=== PATIENT | female | born 1955 | race Caucasian/White ===

== ENCOUNTER → 2020-10-27 10:15 | Outpatient (CLI) | payer OTHER, SELFPAY ==
[2020-10-27 10:40] LABS: Add Manual Diff / Slide Review NO; Basophils Absolute Auto 100 /uL (0-100); Eosinophils Absolute Auto 200 /uL (0-450); Eosinophils Percent Auto 3.2 % (2-4); Hematocrit 43.1 % (36-46); Hemoglobin 14.6 g/dL (12.0-16.0); Lymphocytes Absolute Auto 2200 /uL (1100-4500); Lymphocytes Percent Auto 37.6 % (25-40); Mean Corpuscular Volume 91.4 fL (80-100); Monocytes Absolute Auto 400 /uL (0-900); Monocytes Percent Auto 7.4 % (3-14); Neutrophils Absolute Auto 3000 /uL (1500-7000); Neutrophils Percent Auto 50.8 % (50-75); Platelet Count 306 X10^3/uL (150-400); Red Blood Cell Count 4.71 X10^6/uL (4.0-5.2); Red Cell Distribution Width 13.5 % (11.6-14.8); White Blood Cell Count 5.8 X10^3/uL (4.5-11.0)
[2020-10-27 11:07] LABS: BUN Creatinine Ratio 28.6 (6-22); Blood Urea Nitrogen 18 mg/dL (7-17); Calcium 9.8 mg/dL (8.4-10.2); Carbon Dioxide 30 mmol/L (22-32); Chloride 103 mmol/L (98-107); Estimated Glomerular Filt Rate > 60.0 mL/min (>60); Glucose 115 mg/dL (80-110); HEMOLYSIS < 15 (0-50); Potassium 4.4 mmol/L (3.4-5.1); Sodium 138 mmol/L (137-145)
[2020-10-27 11:13] LABS: Hemoglobin A1C% w Est Avg Glu 5.9 % (4.0-6.0)
== END ==
PROVIDERS: Referring Provider Orthopaedic Surgery Adult Reconstructive Orthopaedic Surgery; Visit Provider Orthopaedic Surgery Adult Reconstructive Orthopaedic Surgery
DX: Z01.818 Encounter for other preprocedural examination (principal); Z01.812 Encounter for preprocedural laboratory examination; R73.9 Hyperglycemia, unspecified
CPT/HCPCS: 36415; 80048; 83036; 85025; 93005; 93010

== ENCOUNTER → 2020-11-19 11:56 | Outpatient (CLI) | payer OTHER, SELFPAY ==
[2020-11-19 12:52] LABS: COVID19 -Nasal RAPID Negative (Negative)
== END ==
PROVIDERS: Visit Provider Physician Assistant
DX: Z20.822 Contact with and (suspected) exposure to COVID-19 (principal)
CPT/HCPCS: 87635

== ENCOUNTER 2020-11-21 10:23 | Day surgery (SDC) | payer OTHER, SELFPAY ==
[2020-11-21] VITALS (15 sets, daily range): BP systolic 128–173; BP diastolic 67–95; PULSE 67–98; RESP 9–18; TEMP 35.9–37; O2SAT 92–99; BMI 32.4
--- NOTE | 2020-11-21 | DI.RAD.S_ITS ---
PROCEDURE: XR HIP LT 1V INDICATIONS: LEFT TOTAL HIP TECHNIQUE: Single views of the hip were acquired. COMPARISON: None. FINDINGS: Spot fluoroscopic intraoperative images demonstrating expected intraoperative alignment of left hip arthroplasty. Dictated by: Chaka Womack M.D. on 11/21/2020 at 14:43 Approved by: Chaka Womack M.D. on 11/21/2020 at 14:43
--- NOTE | 2020-11-21 11:23 | DI.RAD.S_ITS ---
PROCEDURE: XR PELVIS 1-2V INDICATIONS: anterior AL TECHNIQUE: 1 view of the lower pelvis acquired. COMPARISON: [facility], CR, XR HIP LT 1V, 11/21/2020, 13:31. [facility], CR, XR PELVIS WITH BILATERAL LATERAL HIPS, 09/17/2020, 14:17. FINDINGS: Bones: Patient is status post left hip arthroplasty, with hardware components in expected positions. The hip joint appears congruent. The visualized bony structures appear intact. Severe right hip DJD. Soft tissues: Overlying postoperative changes are noted. No suspicious soft tissue densities. IMPRESSION: Expected postoperative appearance of the left total hip arthroplasty. Dictated by: Jin Vivar M.D. on 11/21/2020 at 14:37 Approved by: Jin Vivar M.D. on 11/21/2020 at 14:38
--- NOTE | 2020-11-21 11:28 | PM.PREOP ---
Pre-operative Note COVID-19 COVID-19 status: Negative Result date/Date tested (Pos, Neg/Pending): 11/19/20 Interval Note History & Physical reviewed/Exam performed by Physician: Yes Changes to H&P: No H&P completed within 30 days and has changed as indicated here:: Plan for left anterior AL
[2020-11-21] MEDS: ACETAMINOPHEN 325 MG TABLET 975 MG PO (11:34)
[2020-11-21] MEDS: PREGABALIN 75 MG CAPSULE PO (11:34)
[2020-11-21] MEDS: CELECOXIB 200 MG CAPSULE PO (11:35)
[2020-11-21] MEDS: LACTATED RINGERS 1,000 ML 42 ML IV ×2 (11:36→14:11)
[2020-11-21] MEDS: CEFAZOLIN 2 GM/100 ML FROZ.PIGGY IV ×2 (12:17→20:57)
[2020-11-21] MEDS: TRANEXAMIC ACID 1,000 MG VIAL 2000 MG INJ ×2 (12:30→14:20)
--- NOTE | 2020-11-21 13:03 | SUR.OPER ---
Supine on padded [place] table with bilateral legs secured in padded positioning boots and suspended in positioning spars, operative leg in traction per surgeon. Head on one pillow. Arm on non-operative side secured on padded armboard <90 degrees abduction. Arm on operative side padded and resting across chest then secured with tape over sheet. Padded perineal post in place per surgeon.
[2020-11-21] MEDS: ROPIVACAINE 0.5% PF 5 MG/ML 20ML VIAL 60 ML INJ (13:48)
[2020-11-21] MEDS: KETOROLAC 30 MG/ML VIAL IV (13:49)
[2020-11-21] MEDS: MORPHINE 4 MG/ML INJ INJ (13:49)
[2020-11-21] MEDS: BACITRACIN OINT 0.9 GM PCKT 1 APPLIC TOP (14:36)
--- NOTE | 2020-11-21 14:48 | PM.OP.1 ---
Operative Date/Time/Diagnoses Date of procedure: 11/21/20 Time of procedure: 14:49 Pre-op diagnosis: Left hip severe OA Procedure & Clinicians Procedure: left anterior AL Same procedure as scheduled: Yes Indications: Severe OA with large osteophytes and femoral head deformity Surgeon: Izaiah Zaragoza Research Programmer: Robbin Alejandre Click Yes if Unassisted: No Anesthesia Type: General and Spinal Operative Notes Findings: Severe left hip OA. Large head and neck osteophytes, large emdial wall osteophytes, subchondral cysts, femoral head collapse Closure Type: primary Specimen(s): none sent Prosthetic devices, grafts, tissues, transplants, or devices: [employer]hew 52 mm R3 cup 2x 25mm screws 52 x 36 mm neutral offset liner Size 5 high offset anthology 36+ 4 Biolox head Estimated Blood Loss (mL): 200 Procedure in detail: Patient was met in the preoperative holding area where the site and side of surgery were marked by . Informed consent had been reviewed in clinic was also reviewed the preoperative holding area and all last minute questions were answered. Patient was then brought back in the operating room where she received a spinal anesthetic. She was then transferred on the [place] table and induced under general anesthesia. Both feet were placed in well-padded [place] table boots and the left lower extremity was then prepped and draped in normal sterile fashion. A surgical time-out was performed verifying the site and side of surgery as well as the name of the patient. A 6 cm long incision based approximately 2 cm distal and 2 cm lateral to the ASIS aiming towards the fibular head was made in the skin using 10. Blade. Electrocautery was used to dissect down to the level of the tensor fascia. A 10. Blade was then used to incise the tensor fascia Allis clamp was placed on the medial leaflet. The tensor muscle itself was then reflected laterally and a Cobra was placed over the superior aspect of the femoral neck. A Meyerding retractor was then placed over the lateral aspect of the rectus femoris retracted medially to give us good exposure to the ascending branches of the femoral circumflex vessels this was then coagulated using electrocautery and a 2nd retractor was then placed under the inferior aspect of the femoral neck. A bent Hohmann retractor was then placed over the anterior lip of the acetabulum to give us good exposure to the capsule. Inverted T-shaped capsulotomy was then performed the superior and inferior leaflets were then tagged with FiberWire suture. LArge head and neck osteophytes were noted. These were then partially released and the retractors then placed intracapsularly. A reciprocating saw was then used to make our femoral neck cut and a corkscrew was then used to remove the femoral head. Retractors were then placed to give us good acetabular exposure. The labrum was then removed with a Weld blade and the pulvinar was removed using electrocautery and suction. I began reaming with a 45 mm Reamer using floruscopy and then up sized to 46 mm Reamer and then up by 2s to 50 mm Reamer. Then selected a 51 mm Reamer which had good the resistance and a 52 mm cup was then selected. The cup was then placed a under fluoroscopic guidance. Two screws were then placed. The neutral offset liner was then placed in the cup and malleted flush in making sure the tabs were well seated. Next I turned my attention to the femoral side a femoral elevator hook was then used to place underneath the posterior aspect of the femur the femur was then externally rotated to 110? of external rotation extent of floor and adducted. A bent Hohmann retractors then placed over the superior leaflet of the capsulotomy and a capsular release was performed and then a single prong large retractors placed over the superior aspect of the greater trochanter. A Odonnell retractor was then placed over the calcar to give us good exposure to the femoral neck cut. A canal finer was then used followed by a large curette followed by chili pepper broach to lateralize followed by a 1. Broach upsizing by once into a size 4. Then calcar planed off the size 4 broach this had good fit and fill. I then placed a standard neck with a 36+ 0 head and reduced the hip. The hip was not stable to maximal external rotation nor external rotation to 90? and extension to the floor. X-ray was brought in which showed that we were a couple mm short on this side and had decreased offset as compared to the non operative side. In addition the stem was undersized. I then up the broach to a size 5 which had good rotational stability. Trialed the high offset neck and a 36 + 4 head which had excellent stability with external rotation to maximal external rotation as well as external rotation to 90? in extension to the floor. The hip was then dislocated the trial components removed and a size 5 high-offset anthology was then placed and a 36+4 head was then selected and malleted onto the trunnion. The hip was then reduced a final time and had the same stability as prior. Betadine solution was then placed into the wound as final x-rays were obtained the Betadine solution was then lavaged with copious normal saline periarticular injection was then performed with local anesthetic. Capsulotomy was then repaired using a running Ethibond suture and the tag FiberWire sutures were then removed. The tensor fascia was then closed using number 0 Vicryl in a running locking fashion followed by 2 Vicryl in the subcutaneous layer followed by 3-0 Stratafix Dermabond on the skin layer and an Aquacel dressing. Post-operative Condition: stable Disposition: PACU Plan for aftercare: 24 hours post-op abx, WBAT LLE, ASA 81mg BID for 6 weeks for DVT prophylaxis
[2020-11-21] MEDS: fentaNYL 100 MCG/2 ML INJ IV (15:12)
--- NOTE | 2020-11-21 16:44 | PC.NURSE ---
Pt's home meds x 2 obtained from pt and sent to pharmacy after explanation provided to pt.
[2020-11-21] MEDS: METFORMIN XR 500 MG TABLET PO (17:37)
[2020-11-21] MEDS: LACTATED RINGERS 1,000 ML 125 ML IV (17:37)
[2020-11-21] MEDS: ACETAMINOPHEN 325 MG TABLET 650 MG PO ×2 (17:37→20:57)
[2020-11-21 18:26] LABS: Add Manual Diff / Slide Review NO; Basophils Absolute Auto 0 /uL (0-100); Basophils Percent Auto 0.4 % (0-2); Eosinophils Absolute Auto 0 /uL (0-450); Hematocrit 38.2 % (36-46); Hemoglobin 12.8 g/dL (12.0-16.0); Lymphocytes Absolute Auto 700 /uL (1100-4500); Mean Corpuscular HGB Conc 33.4 % (30-36); Mean Corpuscular Hemoglobin 30.9 PG (26-34); Mean Corpuscular Volume 92.5 fL (80-100); Monocytes Absolute Auto 300 /uL (0-900); Monocytes Percent Auto 2.1 % (3-14); Neutrophils Absolute Auto 12500 /uL (1500-7000); Neutrophils Percent Auto 92.5 % (50-75); Platelet Count 258 X10^3/uL (150-400); Red Blood Cell Count 4.13 X10^6/uL (4.0-5.2); Red Cell Distribution Width 13.7 % (11.6-14.8); White Blood Cell Count 13.5 X10^3/uL (4.5-11.0)
[2020-11-21] MEDS: ASPIRIN EC 81 MG TABLET PO (20:57)
[2020-11-21] MEDS: DOCUSATE 100 MG CAPSULE PO (20:57)
[2020-11-21] MEDS: BACITRACIN 28 GM OINT 1 APPLIC TOP (20:58)
[2020-11-21] MEDS: hydrOXYzine pamoate 25 MG CAPSULE PO (23:28)
[2020-11-22] VITALS: BP 127/73; PULSE 90; RESP 18; TEMP 36.3; O2SAT 93
[2020-11-22] MEDS: OXYCODONE IR 5 MG TABLET PO ×4 (00:26→10:14)
[2020-11-22] MEDS: LACTATED RINGERS 1,000 ML 125 ML IV (01:22)
[2020-11-22] MEDS: CEFAZOLIN 2 GM/100 ML FROZ.PIGGY IV (03:54)
[2020-11-22 04:08] VITALS: BP 118/65; PULSE 82; RESP 18; TEMP 36.2; O2SAT 93
[2020-11-22 06:02] LABS: Hematocrit 33.7 % (36-46); Hemoglobin 11.3 g/dL (12.0-16.0)
[2020-11-22 08:00] VITALS: BP 131/66; PULSE 70; RESP 18; TEMP 37.1; O2SAT 93
[2020-11-22] MEDS: BACITRACIN 28 GM OINT 1 APPLIC TOP (09:21)
[2020-11-22] MEDS: ACETAMINOPHEN 325 MG TABLET 650 MG PO (09:25)
[2020-11-22] MEDS: ASPIRIN EC 81 MG TABLET PO (09:25)
--- NOTE | 2020-11-22 09:25 | PT.IIE ---
Current Diagnoses Unilateral primary osteoarthritis, left hip (11/21/20) Surgery Performed Operation Date: 11/21/20 11:45 Actual Procedures p Total Hip Arthroplasty/Anterior Approach(Left) - Izaiah Zaragoza MD Medical History (Last Updated 11/19/20 @ 14:12 by Tatiana Cleaning RN) Adopted DMII (diabetes mellitus, type 2) Hyperlipidemia Hypertension Lower extremity edema Primary osteoarthritis of left hip Recurrent sinusitis Physical Therapy Inpatient Evaluation/Re-Eval M1 PT/OT-IP Prior Functional Status Start: 11/22/20 11:07 Freq: NEEDED Status: Active Protocol: Document 11/22/20 09:25 AB (Rec: 11/22/20 11:18 AB [id number]) Medical Review Prior Functional Status Medical History Reviewed Yes Communication able to make needs known Mobility and Gait pt stated that she is modified independent with all mobilities and ambulation using SPC but occasionally walks without AD indoors but tends to furniture cruise Social History Household Members spouse Living Arrangements House Number of Floors (Floors) One Floor Number of Stairs To Enter/Railing? 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 has a safety frame on one of the toilets M2 PT-IP Current Condition Start: 11/22/20 11:07 Freq: NEEDED Status: Active Protocol: Document 11/22/20 09:25 AB (Rec: 11/22/20 11:18 AB [id number]) Physical Therapy Current Condition Current Condition Evaluation Date 11/22/20 Treatment Diagnosis s/p L AL anterior approach; difficulty in walking Onset Date 11/21/20 Precautions Anterior Hip Precautions No Hip Extension,No Hip External Rotation Weight Bearing Status Weight Bearing Status Weight Bear as Tolerated Allowed Weight Bearing Amount (enter % LLE WBAT or #) (%) M3 PT-IP Subjective Start: 11/22/20 11:07 Freq: NEEDED Status: Active Protocol: Document 11/22/20 09:25 AB (Rec: 11/22/20 11:18 AB [email or web address]) Subjective Physical Therapy Visit Type Type Initial Evaluation Visit Start Time 09:25 Visit Stop Time 10:07 Total Visit Minutes 42 Number of APPLICATION SUPPORT MANAGER Visits 0 Physical Therapy Visit Comments Patient Comments pt is agreeable to do PT Patient Goals to go home Therapy Pain Assessment Pain When Pain Assessed At Rest Pain Present Pain Present Pain Reported Location Left Hip Intensity 3 Scale Used Numeric (0 - 10) Pain Management Techniques Apply Cold,Distraction, Modification of Treatment,Re- positioning,Timing of Activity with Medications M4 PT-IP Mobility and Gait Start: 11/22/20 11:07 Freq: NEEDED Status: Active Protocol: Document 11/22/20 09:25 AB (Rec: 11/22/20 11:18 AB [id number]) PT-Bed Mobility Assessment Supine to Sit Supine to Sit Standby Assistance PT-Transfer Assessment Sit to and From Stand Sit to and from Stand Standby Assistance,1 Person Assistance,Use of Upper Extremities Equipment Transfer Assistive Device Gait Belt,Front Wheeled Walker Orthotic/Prosthetic Devices or Brace: No Transfers Transfer Destination Chair Transfer Technique ambulated using FWW Transfer Ability Level of Assist Standby Assistance,Contact Guard Assistance,1 Person Assistance,Use of Upper Extremities Comments Mobility Comments educated pt on anterior hip precautions and pt able to recall. completed supine to sit SBA. able to sit on EOB SBA. completed sit to stand SBA and ambulated in room using FWW SBA to occasional CGA. presents with antalgic gait. ambulated in the hallway ~ 150 ft using FWW SBA . completed up/down steps using L rail CGA and cues. offered caregiver training but pt refused. stated that she can manage and knows what to do. pt ambulated back to her room and agreed to sit up on chair. positioned on chair. call light and table placed within reach. Gait Assessment Gait Gait Assistance Required: Standby Assistance,Contact Guard Assist Distance (Feet) 150 Able to Maintain Weight Bearing Status Yes During Gait Assistive Devices Assistive Device Gait Belt,Front Wheeled Walker Orthotic/Prosthetic Devices or Brace: No Gait Deviations General Gait Pattern Antalgic Factors Limiting Gait Function Factors Limiting Gait Function Decreased Activity Tolerance, Decreased Strength,Limited Range of Motion,Pain,Poor Balance Comments Gait Comments pls refer to mobility section for details Stair Climbing Assessment Evaluation Level of Assist On Stairs Contact Guard Assistance Devices Stair Climbing Assistive Devices Left Railing Technique/Endurance Stair Climbing Direction Ascend and Descend Stair Climbing Technique Step to Step Number of Steps Climbed 3 Query Text: Stair Climbing Set # Repetitions (reps) 1 PT-Balance Assessment Sitting Balance and Reactions Static Sitting Balance Ability Normal Dynamic Sitting Balance Ability Good Standing Balance and Reactions Static Standing Balance Ability Fair Dynamic Standing Balance Ability Fair Device Used FWW M5 PT-IP Objective Assessments Start: 11/22/20 11:07 Freq: NEEDED Status: Active Protocol: Document 11/22/20 09:25 AB (Rec: 11/22/20 11:18 AB [id number]) Orientation Orientation/Cognition Level of Alertness Alert Orientation Name,Age,Place,Situation Language Function Ability No Deficits Noted Safety Awareness Understands Safety Issues Memory Description No Deficits Noted Gross Range of Motion Lower Extremity ROM Assessment Within Functional Limits Strength Lower Extremity Strength Assessment Left Impaired Hip 3+/5 Muscle Tone Muscle Tone WNL Yes M6 PT-IP Treatment Start: 11/22/20 11:07 Freq: NEEDED Status: Active Protocol: Document 11/22/20 09:25 AB (Rec: 11/22/20 11:18 AB [email or web address]) Physical Therapy Treatment Exercises Exercises Heel Slides Education Education Provided Precautions,Weight Bearing Status,Post-Op Packet,Safety M7 PT-IP Assessment and Plan Start: 11/22/20 11:07 Freq: NEEDED Status: Active Protocol: Document 11/22/20 09:25 AB (Rec: 11/22/20 11:18 AB [id number]) PT Summary Assessment and Plan Potential Rehabilitation Potential Good Status of Condition at Evaluation Stable Summary Impairments Pain,ROM,Strength,Balance,Bed Mobility,Transfers,Gait, Activity Tolerance Assessment Summary pt requiring SBA to occasional CGA with ambulation using FWW . pt plans to go home and spouse to assist her as needed . pt stated that she is set up for outpt PT. pt may go home when medically stable. Goals Bed Mobility Goal Independent Transfer Goal Independent,Front Wheeled Walker Gait Goal Independent,Front Wheel Walker Gait Distance 200 Other Goals up/down 2 steps L rail ascending SBA Days to Meet Goals 3 Frequency of Treatment Frequency Of Treatment Twice a Day Treatment Plan Physical Therapy Treatment Plan Bed Mobility Training,Transfer Training,Gait Training, Therapeutic Exercise,Balance Retraining,Post Op Education, Discharge Planning,Hot or Cold Pack,Neuromuscular Re-ed, Coordination Retraining,Manual Therapy Precautions Anterior Hip Precautions No Hip Extension,No Hip External Rotation Recommendations To Nursing Amount of Assist Needed 1 Person Assist Discharge Recommendations PT Discharge Recommendations Home with Assistance, Outpatient PT Transportation Needs at Discharge Private Vehicle
[2020-11-22] MEDS: SODIUM CHLORIDE 0.9% FLUSH 10 ML IV (09:26)
--- NOTE | 2020-11-22 11:49 | PM.DS.1 ---
History of Present Illness History of Present Illness Date Patient Seen: 11/22/20 Time Patient Seen: 11:50 Chief complaint: *OPB* Narrative: Please refer to previously documented HPI and chart Discharge Providers Provider Discharge Date: 11/22/20 Primary care physician: Doctor Too MD Consults: 11/21/20 11:23 Consult to Anesthesiology Routine Comment: Consulting Provider: Anesthesiologist Reason for consultation: Regional block for post operative pain control 11/21/20 16:01 Consult to Discharge Planning Routine Comment: Consult to Physical Therapy Evaluate & Treat Comment: Physician Instructions: post op AL protocol Consult to Respiratory Therapy Evaluate & Treat Comment: Physician Instructions: Evaluate and treat Discharge provider: Robbin Alejandre PA-C Summary Hospital Course Discharge Diagnosis: Left hip osteoarthritis Status post left total hip arthroplasty via anterior approach Hospital Course: 65-year-old female with the above-listed diagnosis was appropriately consented for the above listed procedure and presented to OR undergoing said procedure without difficulty or complication then admitted overnight for observation to hospital including but not limited to pain management, physical and occupational therapy as well as evaluation for disposition home today. Surgical evaluation concurred with therapeutic recommendations. At the time of discharge the patient had improved itching from taking narcotic analgesics after antihistamine and treatment utilizing Vistaril. She was able to eat her breakfast and void without difficulty. Her wound was clean, dry and intact. The patient denied any intractable pain, weakness, numbness or tingling in the related left hip or distal lower extremity. There was no fever, chills, chest pain, or shortness of breath. She verbalized understanding postoperative total hip care protocols, instructions and precautions. The patient agreed with the plan to follow-up in clinic in 2 weeks for re-evaluation or sooner as needed. Status at Discharge Cognitive/behavioral status at discharge: oriented Functional status at discharge: uses cane/walker Overall status at discharge: patient is progressing back to baseline Time Spent with Patient Time spent: Less than 30 minutes Exam Vital Signs (past 8 hours): - 11/22/20 04:08 11/22/20 08:00 Temperature 97.1 F L 98.7 F Pulse Rate 82 70 Respiratory Rate 18 18 Blood Pressure 118/65 131/66 Pulse Oximetry 93 93 Oxygen Delivery Method Room Air Oxygen Flow Rate 0 Narrative Exam Narrative: 65-year-old female observed sitting in chair comfortably and in no apparent distress. She is alert and oriented x3. The wound dressing on her left hip was clean, dry and intact. There was appropriate thelma-incisional tenderness to palpation. Her calves were soft, compressible and nontender bilaterally. The distal left lower extremity functional Aviles and plantar flexion was grossly intact as well as her neurovascular function including gross normal sensation and 2+ pulses. Objective Labs Result Diagrams: 11/22/20 05:20 Labs: Laboratory Results - last 24 hr 11/21/20 11/22/20 18:19 05:20 WBC 13.5 H RBC 4.13 Hgb 12.8 11.3 L Hct 38.2 33.7 L MCV 92.5 MCH 30.9 MCHC 33.4 RDW 13.7 Plt Count 258 Neut % (Auto) 92.5 H Lymph % (Auto) 5.0 L [place] % (Auto) 2.1 L Eos % (Auto) 0.0 L Baso % (Auto) 0.4 Neut # (Auto) 15345 H Lymph # (Auto) 700 L [place] # (Auto) 300 Eos # (Auto) 0 Baso # (Auto) 0 PFSH Medical History (Updated 11/19/20 @ 14:12 by Tatiana Cleaning RN) Adopted DMII (diabetes mellitus, type 2) Hyperlipidemia Hypertension Lower extremity edema Primary osteoarthritis of left hip Recurrent sinusitis Social History household members: spouse Smoking Status: Former smoker alcohol intake: current Discharge Assessment & Plan Assessment and Plan Assessment: Left hip osteoarthritis Postoperative day 1 status post left total hip arthroplasty via anterior approach concurrently doing well and stable for discharge home today. Plan of Treatment: 1. Discharge home today after PT/OT recommendation for disposition. 2. Postoperative total hip arthroplasty care protocols, instructions and recommendations apply. 3. Follow-up in 2 weeks in clinic for re-evaluation or sooner as needed. Discharge Plan Discharge Plan Patient Disposition: Home Discharge orders & Medications Discharge Orders: Discharge (Order); Ordered 11/22/20 Ordered By: Robbin Alejandre Prescriptions: New acetaminophen 325 mg Tablet 650 mg PO TID Qty: 60 RF: 0 aspirin 81 mg Tablet,Delayed Release (Dr/Ec) 81 mg PO BID Qty: 60 RF: 0 oxycodone 5 mg Tablet 5 mg PO Q4-5H PRN (Reason: Pain, Moderate (4-6)) Qty: 20 RF: 0 hydroxyzine pamoate 25 mg Capsule 25 mg PO Q6HR PRN (Reason: Itching) Qty: 60 RF: 0 Continued ascorbic acid (vitamin C) 1,000 mg Tablet 1 g PO BID RF: 0 triamcinolone acetonide 0.5 % ointment TOPICAL RF: 0 diclofenac sodium 75 mg tablet,delayed release (DR/EC) 75 mg PO BID RF: 0 multivitamin Capsule 1 cap PO DAILY RF: 0 metformin 500 mg tablet extended release 24 hr 500 mg PO QPM RF: 0 vitamin E 400 unit Capsule 400 unit PO DAILY RF: 0 cholecalciferol (vitamin D3) [Vitamin D3] 25 mcg (1,000 unit) Capsule 50 mcg PO DAILY RF: 0 acqvwxrzomm-oxbbxnlgv-dmy C-Mn [Glucosamine Chondroitin MaxStr] 500-400 mg Capsule 1 cap PO TID RF: 0 calcium carbonate-vitamin D3 500 mg(1,250mg) -200 unit Tablet 1 tab PO RF: 0 milk thistle 175 mg Capsule 160 mg PO DAILY RF: 0 cranberry fruit RF: 0 cyanocobalamin (vitamin B-12) RF: 0 turmeric RF: 0 Follow up/Referrals: Doctor Gage MD [Primary Care Provider] - Izaiah Zaragoza MD [Physician] - (Follow-up in clinic in 2 weeks for re-evaluation.) Diet/Activity/Treatments Diet: Diet as Tolerated and Carb-consistent/Diabetic Activity: Weight bear as tolerated in bilateral lower extremities with fall precautions Cold/Heat Therapy: Ice 20 minutes every hour as needed and tolerated. Skin/Wound/Dressing Care Skin care: Apply OTC triple antibiotic ointment twice daily to left inguinal fold skin Report to your healthcare provider any signs of infection, such as:: chills, fever, night sweats, increased pain, unusual drainage and unusual redness Dressing: Call if dressing is soiled or saturated. Visit Report/Discharge Packet Instructions: DI for Hip Replacement Stand Alone Forms: Surgery Discharge Discharge Data Primary Care Provider: Doctor Too Attending Provider: Izaiah Zaragoza Quality VTE Deep Vein Thrombosis/Pulmonary Embolism Present on Admission: No MIPS - Admit Advanced Care Plan / Current Medications Measures: #47 ? Advanced Care Plan Clinician documentation instruction: document at admission. [] I confirmed that the patient's Advance Care Plan is present, code status is documented, or surrogate decision maker is listed in the patient?s medical record. [SATISFIES MIPS PERFORMANCE] If Yes, Stop Here [] The patient?s Advance Care plan is not present because: (select) [MIPS PERFORMANCE EXCEPTION/EXCLUSION] [] I confirmed today that the patient does not wish or was not able to name a surrogate decision maker or provide an Advance Care Plan. [] Hospice care is currently being provided or has been provided this calendar year [] I did NOT confirm today the presence of an Advance Care Plan or surrogate decision maker documented within the patient's medical record. [DOES NOT SATISFY MIPS PERFORMANCE] #130 - Documentation of Current Medications in the Medical Record Clinician documentation instruction: use macro the first time you see a patient. [] I have utilized all available immediate resources to obtain, update, or review the patient?s current medications. [SATISFIES MIPS PERFORMANCE] If Yes, Stop Here [] The patient is not eligible for medication reconciliation; the patient is in an emergent medical situation where delaying treatment would jeopardize the patient?s health. [MIPS PERFORMANCE EXCEPTION/EXCLUSION] [] I did NOT confirm, update or review the patient's current list of medications today. [DOES NOT SATISFY MIPS PERFORMANCE] MIPS - CL Central Venous Catheter Placement Measure: #76 ? Prevention of Central Venous Catheter (CVC) ? Related Bloodstream Infection Clinician documentation instruction: use macro every time you place a central line. [] All elements of Maximal Sterile Barrier Technique, including hand hygiene, skin prep, and sterile ultrasound technique (if used) were followed. [SATISFIES MIPS PERFORMANCE] If Yes, Stop Here [] If ?No?, the medical reason all elements were NOT used for medical reason [] (ex. emergent condition). [] Maximal Sterile Barrier Technique was not followed, no reason provided [DOES NOT SATISFY MIPS PERFORMANCE] MIPS - DC Heart Failure Measures: #5 - Heart Failure (HF): Angiotensin-Converting Enzyme (TITI) Inhibitor or Angiotensin Receptor Karen (ARB) Therapy for Left Ventricular Systolic Dysfunction (LVSD) and #8 - Heart Failure (HF): Beta-Karen Therapy for Left Ventricular Systolic Dysfunction (LVSD) Clinician documentation instruction: use macro at every CHF discharge. [] The patient has current or prior documentation of left ventricular ejection fraction (LVEF) less than 40%, or moderate or severely depressed left ventricular systolic function. Answer both: [SATISFIES MIPS PERFORMANCE] [] The patient was prescribed or already taking an Angiotensin-Converting Enzyme (TITI) Inhibitor, or Angiotensin Receptor Karen (ARB). [] The patient was prescribed or already taking a beta-karen. If Yes to Both, Stop Here [] Patient not prescribed/taking: [MIPS PERFORMANCE EXCEPTION/EXCLUSION] [] TITI or ARB for medical/patient/system reason(s) including [] (ex. allergy, intolerance, contraindication) [] Beta-karen for medical/patient/system reason(s) including [] (ex. allergy, intolerance, contraindication) [] Patient not prescribed/taking: [DOES NOT SATISFY MIPS PERFORMANCE] [] TITI or ARB, no reason given [] Beta-karen, no reason given
[2020-11-22 12:00] VITALS: BP 118/56; PULSE 89; RESP 19; TEMP 37.1; O2SAT 96
--- NOTE | 2020-11-22 12:48 | CM.DANOTE ---
DCP: Case received, EMR reviewed and met with patient. Introduced self and role. Was able to obtain information from patient regarding her baseline activity status prior to surgery, as well as her current living situation. DCP assessment completed with information currently available. Patient is a 65 year old female who admitted yesterday morning to the care of the orthopedic team. PCP: [facility] Payer: confirmed: Luzmaria SANTANA. Patient came to the hospital for a surgical procedure. She had left total hip arthroplasty. Patient has history of hip osteoarthritis, which resulted in chronic hip pain. Met with patient in her room. She was sitting up in her chair, alert and oriented. She resides in [facility] with her spouse, Souleymane. She mentioned that her is disabled, but high functioning, still driving. Patient is independent at her baseline, has been able to drive. She uses a cane, but purchased a FWW on [employer] for home use. She has a friend named Lenore, who will be picking her up. She stated that she does not work for [employer], hasn't worked there for several years. 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 P: Patient has discharge orders for home today. She will have another session with P.T. before she goes home. Mckenzie Garcia RN/Lactation Specialist
--- NOTE | 2020-11-22 13:38 | PC.NURSE ---
Pt discharge education given to pt and friend, discussed- medications and med safety, s/s of infection, f/u appts, diet, activity, s/s of stroke and reasons to seek medical attention. All questions answered. IV removed, intact, tolerated well. Medications returned to pt from pharmacy. All belongings packed up and sent with friend. Pt left via w/c to friend's POV.
== END 2020-11-22 13:00 | disposition home or self-care (01) ==
LOC: OR 12:34 → AC 12:42
PROVIDERS: Referring Provider Orthopaedic Surgery Adult Reconstructive Orthopaedic Surgery; Visit Provider Orthopaedic Surgery Adult Reconstructive Orthopaedic Surgery
PROC: (CPT 27130; principal; 2020-11-21 11:45)
DX: M16.12 Unilateral primary osteoarthritis, left hip (principal); M25.752 Osteophyte, left hip; M85.652 Other cyst of bone, left thigh; M89.8X5 Other specified disorders of bone, thigh; E11.9 Type 2 diabetes mellitus without complications; E03.9 Hypothyroidism, unspecified; Z79.84 Long term (current) use of oral hypoglycemic drugs
CPT/HCPCS: 27130; 36415; 72170; 73501; 76000; 82962; 85014; 85018; 85025; 97161; C1776; J0690; J1100; J1885; J2250; J2270; J2274; J2405; J2704; J3010

== ENCOUNTER → 2021-04-25 08:42 | Outpatient (CLI) | payer OTHER, SELFPAY ==
[2020-11-21 16:04] VITALS: BMI 32.4
[2021-04-25 09:12] LABS: Add Manual Diff / Slide Review NO; Basophils Absolute Auto 0 /uL (0-100); Eosinophils Absolute Auto 100 /uL (0-450); Eosinophils Percent Auto 2.8 % (2-4); Hematocrit 41.3 % (36-46); Hemoglobin 14.2 g/dL (12.0-16.0); Lymphocytes Absolute Auto 1700 /uL (1100-4500); Lymphocytes Percent Auto 35.1 % (25-40); Mean Corpuscular HGB Conc 34.4 % (30-36); Mean Corpuscular Hemoglobin 31.2 PG (26-34); Mean Corpuscular Volume 90.8 fL (80-100); Monocytes Absolute Auto 500 /uL (0-900); Monocytes Percent Auto 9.4 % (3-14); Neutrophils Absolute Auto 2500 /uL (1500-7000); Neutrophils Percent Auto 51.7 % (50-75); Platelet Count 237 X10^3/uL (150-400); Red Blood Cell Count 4.55 X10^6/uL (4.0-5.2); Red Cell Distribution Width 14.8 % (11.6-14.8); White Blood Cell Count 4.8 X10^3/uL (4.5-11.0)
[2021-04-25 09:19] LABS: Hemoglobin A1C% w Est Avg Glu 5.9 % (4.0-6.0)
[2021-04-25 09:29] LABS: BUN Creatinine Ratio 31.7 (6-22); Blood Urea Nitrogen 20 mg/dL (7-17); Calcium 9.5 mg/dL (8.4-10.2); Carbon Dioxide 26 mmol/L (22-32); Chloride 101 mmol/L (98-107); Estimated Glomerular Filt Rate > 60.0 mL/min (>60); Glucose 114 mg/dL (80-110); HEMOLYSIS < 15 (0-50); Potassium 4.6 mmol/L (3.4-5.1); Sodium 137 mmol/L (137-145)
== END ==
PROVIDERS: PCP Student in an Organized Health Care Education/Training Program; Referring Provider Orthopaedic Surgery Adult Reconstructive Orthopaedic Surgery; Visit Provider Orthopaedic Surgery Adult Reconstructive Orthopaedic Surgery
DX: Z01.818 Encounter for other preprocedural examination (principal); Z01.812 Encounter for preprocedural laboratory examination; R73.9 Hyperglycemia, unspecified
CPT/HCPCS: 36415; 80048; 83036; 85025; 93005; 93010

== ENCOUNTER → 2021-05-13 10:39 | Outpatient (CLI) | payer MEDICARE, SELFPAY ==
[2020-11-21 16:04] VITALS: BMI 32.4
[2021-05-13 14:01] LABS: COVID19 -Nasal RAPID Negative (Negative)
== END ==
PROVIDERS: PCP Student in an Organized Health Care Education/Training Program; Visit Provider Nurse Practitioner Family
DX: Z01.812 Encounter for preprocedural laboratory examination (principal); Z20.822 Contact with and (suspected) exposure to COVID-19
CPT/HCPCS: 87635; C9803

== ENCOUNTER 2021-05-15 08:32 | Day surgery (SDC) | payer MEDICARE, OTHER, SELFPAY ==
[2020-11-21 16:04] VITALS: BMI 32.4
[2021-05-10 12:23] VITALS: BMI 33.3
[2021-05-15] VITALS (17 sets, daily range): BP systolic 112–162; BP diastolic 53–84; PULSE 78–95; RESP 10–21; TEMP 36.2–36.8; O2SAT 91–99; BMI 33.3
--- NOTE | 2021-05-15 | DI.RAD.S_ITS ---
PROCEDURE: XR PELVIS 1-2V INDICATIONS: inter op total hip TECHNIQUE: Intra-operative view of the pelvis and hip acquired. COMPARISON: [facility], , XR PELVIS 1-2V, 11/21/2020, 15:01. FINDINGS: Low resolution fluoroscopic spot films of a total right hip arthroplasty shows good positioning. IMPRESSION: Right total hip arthroplasty in place Approved by: Lyle Dennison M.D. on 05/15/2021 at 13:22
--- NOTE | 2021-05-15 | DI.RAD.S_ITS ---
PROCEDURE: XR PELVIS 1-2V INDICATIONS: Post total right hip TECHNIQUE: Single view(s) of the pelvis acquired. COMPARISON: [facility], CR, XR PELVIS 1-2V, 05/15/2021, 11:53. FINDINGS: Bones: No fractures or dislocations. No suspicious bony lesions. Bilateral total hip arthroplasty in good position. Pelvic ring intact. Degenerative changes noted involving both sacroiliac joints. Soft tissues: Visualized bowel gas pattern is normal. No suspicious soft tissue calcifications. Postoperative air noted in the right thigh. IMPRESSION: Bilateral total hip arthroplasty in good position Approved by: Lyle Dennison M.D. on 05/15/2021 at 13:24
[2021-05-15] MEDS: LACTATED RINGERS 1,000 ML 42 ML IV (09:20)
--- NOTE | 2021-05-15 10:12 | PM.PREOP ---
Pre-operative Note COVID-19 COVID-19 status: Negative Result date/Date tested (Pos, Neg/Pending): 05/13/21 Interval Note History & Physical reviewed/Exam performed by Physician: Yes Changes to H&P: No H&P completed within 30 days and has changed as indicated here:: Plan for right anterior AL
[2021-05-15] MEDS: PREGABALIN 75 MG CAPSULE PO (10:15)
[2021-05-15] MEDS: ACETAMINOPHEN 325 MG TABLET 975 MG PO (10:15)
[2021-05-15] MEDS: CELECOXIB 200 MG CAPSULE PO (10:15)
[2021-05-15] MEDS: CEFAZOLIN 1 GM VIAL 2 GM IV ×2 (11:00→18:32)
[2021-05-15] MEDS: TRANEXAMIC ACID 1,000 MG VIAL 1000 MG INJ ×2 (11:19→12:29)
--- NOTE | 2021-05-15 11:30 | SUR.OPER ---
Patient supine on padded [place] table, one arm on padded arm board at <90, other arm padded and secured with tape across patient's chest, both legs secured in padded traction boots and positioned per surgeon, padded post at patient's groin, pressure points checked and padded.
[2021-05-15] MEDS: KETOROLAC 30 MG/ML VIAL IV (11:54)
[2021-05-15] MEDS: MORPHINE 4 MG/ML INJ INJ (11:54)
[2021-05-15] MEDS: ROPIVACAINE 0.5% PF 5 MG/ML 20ML VIAL 60 ML INJ (11:55)
--- NOTE | 2021-05-15 12:52 | P.OP_ITS ---
Operative Date/Time/Diagnoses Date of procedure: 05/15/21 Time of procedure: 12:52 Pre-op diagnosis: right hip OA Post-op diagnosis: same Procedure & Clinicians Procedure: right anterior AL Same procedure as scheduled: Yes Indications: right hip OA with femoral head collapse resistnat to further conservative measures Surgeon: Izaiah Zaragoza Assembler Tubing: Carlo Holland Click Yes if Unassisted: No Anesthesia Type: General and Spinal Operative Notes Findings: femoral head collapse, large head/neck junction osteophytes, rim osteophytes Closure Type: primary Specimen(s): none sent Prosthetic devices, grafts, tissues, transplants, or devices: Morrison and Nephew 52 mm R3 three-hole cup 2x 25 mm screws 52 mm x 36 mm neutral offset XLPE liner Size 5 high offset anthology femoral stem 36+ 4 delta Biolox head Estimated Blood Loss (mL): 300 Procedure in detail: Patient was met in the preoperative holding area where the site and side of surgery were marked by . Informed consent had been reviewed in clinic was also reviewed the preoperative holding area and all last minute questions were answered. Patient was then brought back in the operating room where she received a spinal anesthetic. She was then transferred on the Crowell table and induced under general anesthesia. Both feet were placed in well-padded Crowell table boots and the right lower extremity was then prepped and draped in normal sterile fashion. A surgical time-out was performed verifying the site and side of surgery as well as the name of the patient. A 6 cm long incision based approximately 2 cm distal and 2 cm lateral to the ASIS aiming towards the fibular head was made in the skin using 10. Blade. Electrocautery was used to dissect down to the level of the tensor fascia. A #10 blade was then used to incise the tensor fascia Allis clamp was placed on the medial leaflet. The tensor muscle itself was then reflected laterally and a Cobra was placed over the superior aspect of the femoral neck. A Meyerding retractor was then placed over the lateral aspect of the rectus femoris retracted medially to give us good exposure to the ascending branches of the lateral femoral circumflex vessels. This was then coagulated using elect rocautery and a 2nd retractor was then placed under the inferior aspect of the femoral neck. A bent Hohmann retractor was then placed over the anterior lip of the acetabulum to give us good exposure to the capsule. Inverted T-shaped capsulotomy was then performed the superior and inferior leaflets were then tagged with FiberWire suture. Large head and neck osteophytes were noted. The casulotomy was then partially released and the retractors then placed intracapsularly. A reciprocating saw was then used to make our femoral neck cut based off out pre-op templated x-rays and a corkscrew was then used to remove the femoral head. Retractors were then placed to give us good acetabular exposure. The labrum was then removed with a Kent blade and the pulvinar was removed using electrocautery and suction. I began reaming with a 42 mm Reamer using floruscopy and then up sized to 44 mm Reamer and then up by 2s to 50 mm Reamer. Then selected a 51 mm Reamer which had good the resistance and a 52 mm cup was then selected. The cup was then placed a under fluoroscopic guidance. Two screws were then placed. The neutral offset liner was then placed in the cup and malleted flush in making sure the tabs were well seated. Next I turned my attention to the femoral side a femoral elevator hook was then used to place underneath the posterior aspect of the femur the femur was then externally rotated to 120? of external rotation extent of floor and adducted. A bent Hohmann retractors then placed over the superior leaflet of the capsulotomy and a capsular release was performed and then a single prong large retractors placed over the superior aspect of the greater trochanter. A Odonnell retractor was then placed over the calcar to give us good exposure to the femoral neck cut. A canal finer was then used followed by a large curette followed by shiva pepper broach to lateralize followed by a #1 broach upsizing by once to a size 4. I then calcar planed off the size 4 broach this had good fit and fill. I then placed a high offset neck with a 36+ 0 head and reduced the hip. The hip was stable to maximal external rotation but not to external rotation to 90? and extension to the floor. X-ray was brought in which showed that we were a little short and the stem was undersized. I then up the broach to a size 5 which had good rotational stability and coutersunkl the braoch so that a 36+4 head would get us back to correct leg lenmgths thereby giving us slightl more offset through the neck. I trialed the high offset neck and a 36 + 4 head which had excellent stability with external rotation to maximal external rotation as well as external rotation to 90? in extension to the floor. The hip was then dislocated the trial components removed and a size 5 high-offset anthology was then placed and a 36+4 head was then selected and malleted onto the trunnion. The hip was then reduced a final time and had the same stability as prior. Betadine solution was then placed into the wound as final x-rays were obtained the Betadine solution was then lavaged with copious normal saline periarticular injection was then performed with local anesthetic. Capsulotomy was then repaired using a running Ethibond suture and the tag FiberWire sutures were then removed. The tensor fascia was then closed using number 0 Vicryl in a running locking fashion followed by 2 Vicryl in the subc utaneous layer followed by 3-0 Stratafix Dermabond on the skin layer and an Aquacel dressing. Post-operative Condition: stable Disposition: PACU Plan for aftercare: Weightbearing as tolerated right lower extremity, 24 hours postop antibiotics, aspirin 81 mg b.i.d. for 6 weeks for DVT prophylaxis.
--- NOTE | 2021-05-15 14:10 | SUR.PHASEI ---
Dr Kiran notified of CBG 155 at 1342. No orders at this time. 1352 Pt transferred to floor by Jennifer Moncada in bed with belongings.
[2021-05-15] MEDS: LACTATED RINGERS 1,000 ML 125 ML IV ×2 (14:18→22:27)
--- NOTE | 2021-05-15 14:30 | PT-IP ANOTE ---
pt just came up from PACU ~ 15 min ago. checked on pt and pt still has numbness on BLE and is not ready for PT. agreed for PT to see her tomorrow.
[2021-05-15] MEDS: ACETAMINOPHEN 325 MG TABLET 650 MG PO ×2 (14:48→20:08)
[2021-05-15] MEDS: OXYCODONE/ACETAMINOPHEN 5/325 TABLET 1 TAB PO (17:16)
[2021-05-15] MEDS: METFORMIN XR 500 MG TABLET PO (17:21)
[2021-05-15] MEDS: diphenhydrAMINE 50 MG/ML VIAL 25 MG IV ×2 (19:00→23:23)
[2021-05-15] MEDS: ASPIRIN EC 81 MG TABLET PO (20:08)
[2021-05-15] MEDS: OXYCODONE IR 5 MG TABLET 10 MG PO (20:50)
[2021-05-16] VITALS: BP 126/60; PULSE 91; RESP 16; TEMP 36.7; O2SAT 93
[2021-05-16] MEDS: OXYCODONE/ACETAMINOPHEN 5/325 TABLET 1 TAB PO (01:55)
--- NOTE | 2021-05-16 02:27 | PC.NURSE ---
Patient is alert and oriented. Breath sounds CTA but reportedly sats drop when asleep so on oxygen at 2L/min per NC with sat of 93% at time of assessment. HRR. Denied nausea. BT hypoactive and denies passing flatus as yet. Has voided and denies any dysuria. Able to move self in bed. Up to BSC with walker and SBA; does need assistance to get right leg into bed. Dressing to right anterior hip is CDI. States she still has some numbness in right anterior thigh but other CMS is intact. Limited ability to lift leg off bed. Wearing bilateral calf SCD's. Did complain of itching and was medicated with Benadryl. Currently is complaining of 4/10 pain so medicated with Percocet as per epidural orders. Fall risk score is high and bed alarm is activated.
[2021-05-16] MEDS: CEFAZOLIN 1 GM VIAL 2 GM IV (02:53)
[2021-05-16] MEDS: diphenhydrAMINE 50 MG/ML VIAL 25 MG IV (02:55)
[2021-05-16 03:22] VITALS: BP 115/55; PULSE 78; RESP 16; TEMP 36.5; O2SAT 97
[2021-05-16 06:34] LABS: Hematocrit 32.3 % (36-46); Hemoglobin 11.1 g/dL (12.0-16.0)
[2021-05-16] MEDS: ACETAMINOPHEN 325 MG TABLET 650 MG PO (07:51)
[2021-05-16] MEDS: OXYCODONE IR 5 MG TABLET 10 MG PO ×2 (07:51→10:45)
[2021-05-16] MEDS: ASPIRIN EC 81 MG TABLET PO (07:51)
--- NOTE | 2021-05-16 07:52 | P.DS_ITS ---
History of Present Illness History of Present Illness Date Patient Seen: 05/16/21 Time Patient Seen: 07:53 Chief complaint: Right hip osteoarthritis Narrative: The patient is complaining of mild right hip pain this morning, which is well controlled with current pain regimen. She denies any fevers, chills, night sweats. She denies any numbness or tingling in bilateral lower extremities. No nausea or vomiting. She did not work with physical therapy yesterday and is planning on doing at least 2 sessions today. Overall she is feeling well, and would like to go home today if cleared by PT Discharge Providers Provider Discharge Date: 05/16/21 Primary care physician: Gustavo Antunez DO Consults: 05/15/21 10:09 Consult to Anesthesiology Routine Comment: Consulting Provider: Anesthesiologist Reason for consultation: Regional block for post operative pain control 05/15/21 14:03 Consult to Discharge Planning Routine Comment: Consult to Physical Therapy Evaluate & Treat Comment: Physician Instructions: post op AL protocol Consult to Respiratory Therapy Evaluate & Treat Comment: Physician Instructions: Evaluate and treat Discharge provider: Alisa Soto PA-C Summary Hospital Course Discharge Diagnosis: Right hip osteoarthritis Hospital Course: Procedure: right anterior AL Same procedure as scheduled: Yes Indications: right hip OA with femoral head collapse resistnat to further conservative measures Surgeon: Izaiah Zaragoza [employer]ovoltaic Electrician: Carlo Holland Click Yes if Unassisted: No Anesthesia Type: General and Spinal Operative Notes Findings: femoral head collapse, large head/neck junction osteophytes, rim osteophytes Closure Type: primary Specimen(s): none sent Prosthetic devices, grafts, tissues, transplants, or devices: [employer] 52 mm R3 three-hole cup 2x 25 mm screws 52 mm x 36 mm neutral offset XLPE liner Size 5 high offset anthology femoral stem 36+ 4 delta Biolox head Estimated Blood Loss (mL): 300 Status at Discharge Cognitive/behavioral status at discharge: oriented Functional status at discharge: uses cane/walker Overall status at discharge: patient is progressing back to baseline Exam Vital Signs (past 8 hours): - 05/16/21 00:00 05/16/21 03:22 Temperature 98.0 F 97.7 F Pulse Rate 91 H 78 Respiratory Rate 16 16 Blood Pressure 126/60 115/55 L Pulse Oximetry 93 97 Oxygen Delivery Method Nasal Cannula Oxygen Flow Rate 2 Narrative Exam Narrative: Pleasant 65-year-old female, resting comfortably in bed, no acute distress. Incision is clean, dry, intact. Bilateral lower extremities with normal motor functions, sensation is also grossly intact to light touch bilaterally. Both legs are warm and dry. Bilateral calves are soft, nontender to palpation Objective Labs Result Diagrams: 05/16/21 05:51 Labs: Laboratory Results - last 24 hr 05/16/21 05:51 Hgb 11.1 L Hct 32.3 L PFSH Medical History Adopted DMII (diabetes mellitus, type 2) Headache, migraine Hyperlipidemia Hypertension Lower extremity edema Primary osteoarthritis of left hip Recurrent sinusitis Thyroid disease Surgical History History of total left hip arthroplasty (11/21/20) Social History household members: spouse Smoking Status: Former smoker alcohol intake: current Discharge Assessment & Plan Assessment and Plan Assessment: Stable status post right total hip arthroplasty, anterior Plan of Treatment: Mobilize with PT Discharge home today after cleared by 2 sessions of physical therapy Aspirin 81 mg b.i.d. x6 weeks for DVT prophylaxis Weightbearing as tolerated with front wheel walker Discharge Plan Discharge Plan Patient Disposition: Home Discharge orders & Medications Discharge Orders: Discharge (Order); Ordered 05/16/21 Ordered By: Alisa Soto Prescriptions: New docusate sodium 100 mg Capsule 100 mg PO BID PRN (Reason: As needed for constipation with pain medication) Qty: 30 RF: 0 hydroxyzine pamoate [Vistaril] 25 mg capsule 25 mg PO TID PRN (Reason: Itching and/or spasm) Qty: 30 RF: 0 Continued ascorbic acid (vitamin C) 1,000 mg Tablet 1 g PO BID RF: 0 triamcinolone acetonide 0.5 % ointment 1 ea TOPICAL DAILY RF: 0 multivitamin Capsule 1 cap PO DAILY RF: 0 metformin 500 mg tablet extended release 24 hr 500 mg PO QPM RF: 0 vitamin E 400 unit Capsule 400 unit PO DAILY RF: 0 cholecalciferol (vitamin D3) [Vitamin D3] 25 mcg (1,000 unit) Capsule 50 mcg PO DAILY RF: 0 [id number] C-Mn [Glucosamine Chondroitin MaxStr] 500-400 mg Capsule 1 cap PO TID RF: 0 milk thistle 175 mg Capsule 160 mg PO DAILY RF: 0 cyanocobalamin (vitamin B-12) 1 tab PO DAILY RF: 0 losartan 50 mg Tablet 50 mg PO DAILY RF: 0 acetaminophen 325 mg Tablet 650 mg PO TID Qty: 60 RF: 0 oxycodone 5 mg Tablet 5 mg PO Q4-5H PRN (Reason: Pain, Moderate (4-6)) Qty: 20 RF: 0 Changed aspirin 81 mg Tablet,Delayed Release (Dr/Ec) 81 mg PO BID PRN (Reason: Prevent blood clots x6 weeks) Qty: 90 RF: 0 diclofenac sodium 75 mg tablet,delayed release (DR/EC) 75 mg PO BID PRN (Reason: pain/inflammation) Qty: 60 RF: 0 Follow up/Referrals: Izaiah Zaragoza MD [Physician] - (10-14 days for postoperative visit) Gustavo Antunez DO [Primary Care Provider] - Diet/Activity/Treatments Diet: Diet as Tolerated and Regular Activity: Weight-bearing as tolerated with front walker. Maintain anterior hip precautions Cold/Heat Therapy: Use ice as needed for pain Other treatments: Aspirin 81 mg twice daily x6 weeks to prevent blood clots Skin/Wound/Dressing Care Report to your healthcare provider any signs of infection, such as:: chills, fever, night sweats, unusual drainage and unusual redness Dressing: Okay to shower with incision covered. Please call the office if bandage becomes wet, soiled, saturated Visit Report/Discharge Packet Instructions: DI for Hip Replacement Stand Alone Forms: Surgery Discharge Discharge Data Primary Care Provider: Gustavo Antunez Attending Provider: Izaiah Zaragoza
--- NOTE | 2021-05-16 07:58 | PC.NURSE ---
Addendum entered by Vicki Jaime R.N. 05/16/21 13:28: Patient given discharge instructions regarding pain, s/s of infection, f/u appointment with ortho, and prescriptions. Patient verbalized understanding. Patient has scheduled f/u appointment, denied further questions at this time. IV removed. Patient tolerated. Patient discharged via wheelchair with aide assist. Original Note: Patient resting in bed. A/O x 3, endorses pain 5/10 unless moving then it becomes 7/10. Patient prefers oxy 10 in anticipation of working with PT. CMS intact, SCD's on BLE, dsg CDI. Patient denies chest pain, SOB or dizziness. Drinking fluids. Saline Locked. Call light in reach.
[2021-05-16 08:05] VITALS: BP 132/66; PULSE 77; RESP 16; TEMP 36.8; O2SAT 95
--- NOTE | 2021-05-16 10:27 | PT.IIE ---
Current Diagnoses Unilateral primary osteoarthritis, right hip (05/15/21) Surgery Performed Operation Date: 05/15/21 10:15 Actual Procedures p Total Hip Arthroplasty/Anterior Approach(Right) - Izaiah Zaragoza MD Medical History (Last Reviewed 05/16/21 @ 07:55 by Alisa Soto PA-C) Adopted DMII (diabetes mellitus, type 2) Headache, migraine Hyperlipidemia Hypertension Lower extremity edema Primary osteoarthritis of left hip Recurrent sinusitis Thyroid disease Physical Therapy Inpatient Evaluation/Re-Eval M1 PT/OT-IP Prior Functional Status Start: 05/16/21 10:17 Freq: NEEDED Status: Active Protocol: Document 05/16/21 10:17 [facility] (Rec: 05/16/21 10:27 [facility] [id number]) Medical Review Prior Functional Status Medical History Reviewed Yes Diet/Fluid Consistency Regular Mobility and Gait pt has a history of AL left side 6 months ago, she has all equipment needed for this surgery and has been ambulatory up unitl surgery Social History Household Members spouse Home Environment Standard Height Toilet Home Equipment Front Wheel Walker,Straight Cane 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 [employer] PT-IP Current Condition Start: 05/16/21 10:17 Freq: NEEDED Status: Active Protocol: Document 05/16/21 10:17 [facility] (Rec: 05/16/21 10:27 [facility] [id number]) Physical Therapy Current Condition Current Condition Evaluation Date 05/16/21 Treatment Diagnosis right AL anterior approach Precautions Anterior Hip Precautions No Hip Extension,No Hip External Rotation M3 PT-IP Subjective Start: 05/16/21 10:17 Freq: NEEDED Status: Active Protocol: Document 05/16/21 10:17 [facility] (Rec: 05/16/21 10:27 [facility] [id number]) Subjective Physical Therapy Visit Type Type Initial Evaluation Visit Start Time 09:50 Visit Stop Time 10:20 Total Visit Minutes 30 Physical Therapy Visit Comments Patient Comments pt reports she is ready for PT and has been up already to use the bathroom. Therapy Pain Assessment Pain When Pain Assessed During Mobility Pain Present Pain Present Pain Reported Location r hip Intensity 2 Scale Used 2/10 at rest 7/10 with movement Pain Management Techniques Apply Cold M4 PT-IP Mobility and Gait Start: 05/16/21 10:17 Freq: NEEDED Status: Active Protocol: Document 05/16/21 10:17 [facility] (Rec: 05/16/21 10:27 [facility] [id number]) PT-Bed Mobility Assessment Supine to Sit Supine to Sit Standby Assistance Scooting Scooting to Edge of Bed Standby Assistance PT-Transfer Assessment Sit to and From Stand Sit to and from Stand Contact Guard Assistance Equipment Transfer Assistive Device Gait Belt,Front Wheeled Walker Orthotic/Prosthetic Devices or Brace: No Transfers Transfer Destination Chair Transfer Technique Stand Step Pivot Transfer Ability Level of Assist Contact Guard Assistance Comments Mobility Comments pt demonstrating good mobility and was stand by assist for bed mobility, CGA assist for transfers, pt demonstrated good awareness of her precautions and no loss of balance Gait Assessment Gait Gait Assistance Required: Contact Guard Assist Distance (Feet) 300 Able to Maintain Weight Bearing Status Yes During Gait Assistive Devices Assistive Device Gait Belt,Front Wheeled Walker Orthotic/Prosthetic Devices or Brace: No Gait Deviations General Gait Pattern Antalgic,Decreased Stride Length Factors Limiting Gait Function Factors Limiting Gait Function Decreased Activity Tolerance, Decreased Strength,Limited Range of Motion,Pain Comments Gait Comments pt was able to ambulate with CGA and FWW with WBAT on the right leg, no loss of balance and pain levels decreased as she walked Stair Climbing Assessment Evaluation Level of Assist On Stairs Contact Guard Assistance Devices Stair Climbing Assistive Devices Left Railing,Right Railing Technique/Endurance Stair Climbing Direction Ascend and Descend Stair Climbing Technique Step to Step Number of Steps Climbed 3 Query Text: Stair Climbing Set # Repetitions (reps) 1 Comments Stair Climbing Comments pt demonstrated good awareness with stairs, she has railings at home and used both railings today M5 PT-IP Objective Assessments Start: 05/16/21 10:17 Freq: NEEDED Status: Active Protocol: Document 05/16/21 10:17 [facility] (Rec: 05/16/21 10:27 [facility] [id number]) Gross Range of Motion Upper Extremity ROM Assessment Within Functional Limits Lower Extremity ROM Assessment Right Impaired Impairments right knee flexion to 70 Strength Upper Extremity Strength Assessment Within Functional Limits Lower Extremity Strength Assessment Right Impaired Comments Strength Comments pt demonstrated enough functional strength for bed mobility, transfers, and gait Sensation Assessment Sensation Gross Sensation WNL Muscle Tone Muscle Tone WNL Yes M6 PT-IP Treatment Start: 05/16/21 10:17 Freq: NEEDED Status: Active Protocol: Document 05/16/21 10:17 [facility] (Rec: 05/16/21 10:27 [facility] [id number]) Physical Therapy Treatment Exercises Exercises Ankle Pumps,Quad Sets,Heel Slides Other Treatments Other Treatment Performed review of precautions and exercies for home M7 PT-IP Assessment and Plan Start: 05/16/21 10:17 Freq: NEEDED Status: Active Protocol: Document 05/16/21 10:17 [facility] (Rec: 05/16/21 10:27 [facility] [id number]) PT Summary Assessment and Plan Potential Rehabilitation Potential Excellent Status of Condition at Evaluation Stable Summary Impairments Pain,ROM,Strength,Transfers, Gait,Activity Tolerance Treatment Plan Other Recommendations and Next Treatment safe for discharge home at Focus this time Recommendations To Nursing Amount of Assist Needed 1 Person Assist Discharge Recommendations PT Discharge Recommendations Home,Home with Assistance Other Discharge Recommendations pt is safe for discharge home with her Transportation Needs at Discharge Private Vehicle
== END 2021-05-16 12:45 | disposition home or self-care (01) ==
LOC: OR 08:35 → AC 08:35
PROVIDERS: PCP Student in an Organized Health Care Education/Training Program; Referring Provider Orthopaedic Surgery Adult Reconstructive Orthopaedic Surgery; Visit Provider Orthopaedic Surgery Adult Reconstructive Orthopaedic Surgery
PROC: (CPT 27130; principal; 2021-05-15 10:15)
DX: M16.11 Unilateral primary osteoarthritis, right hip (principal); M25.751 Osteophyte, right hip; E11.9 Type 2 diabetes mellitus without complications; Z79.84 Long term (current) use of oral hypoglycemic drugs; E66.9 Obesity, unspecified; Z68.34 Body mass index [BMI] 34.0-34.9, adult
CPT/HCPCS: 27130; 36415; 72170; 82962; 85014; 85018; 94762; 97116; 97161; C1776; J0690; J1100; J1200; J1885; J2250; J2270; J2274; J2405; J2704; J3010